=== PATIENT | female | born 1985 | race African-American/Black ===

== ENCOUNTER 2018-05-08 16:52 | Emergency (ER) | payer MEDICAID, OTHER ==
[~2018-05-08] VITALS: Ht 152.4 cm; Wt 68.0 kg
[~2018-05-08 16:52] MED LIST: ATEN-42 PO; HYDR25TA PO
[2018-05-08] MEDS ORDERED: SODIUM CHLORIDE 0.9% 1,000 ML IV ONE (23:02)
[2018-05-08] MEDS ORDERED: ONDANSETRON HCL 4MG/2ML INJ IV STA (23:02)
[2018-05-08] MEDS ORDERED: MORPHINE SULFATE 4 MG/ML CPJ (NOT FOR IM USE) IV STA (23:02)
[2018-05-09] MEDS ORDERED: MORPHINE SULFATE 10 MG/ML CPJ IV NR (00:15)
[2018-05-09 00:26] LABS: HEMOGLOBIN. 9.1 g/dL (12.0-16.0); MEAN CORPUSCULAR HEMOGLOBIN 22.5 pg (28.0-32.0); MEAN CORPUSCULAR VOLUME 73.9 fL (81.0-99.0); MEAN PLATELET VOLUME 8.3 fl (7.4-10.4); PLATELET 290 x1000/uL (130-400); RED BLOOD CELL COUNT 4.06 mill/uL (4.2-5.4); RED CELL DISTRIBUTION WIDTH 20.3 % (11.6-14.6)
[2018-05-09 00:31] LABS: CHLORIDE 102 mEq/L (98-107)
[2018-05-09 00:35] LABS: INR 1.2; PROTHROMBIN TIME 11.8 sec (9.1-11.1)
[2018-05-09 00:52] LABS: CLARITY URINE CLEAR (CLEAR); COLOR URINE YELLOW (YELLOW); KETONES URINE 3+ (NEGATIVE); LEUKOCYTE ESTERASE URINE NEGATIVE (NEGATIVE); NITRITE URINE NEGATIVE (NEGATIVE); OCCULT BLOOD URINE NEGATIVE (NEGATIVE); PH URINE 5.5 (4.5-8.0); PROTEIN URINE 1+ (NEGATIVE); SPECIFIC GRAVITY URINE 1.028 (1.005-1.030); UROBILINOGEN URINE 0.2 E.U./dL (0.2-1.0)
[2018-05-09 00:55] LABS: PLATELET ESTIMATE NORMAL
[2018-05-09 01:23] LABS: *AMPHETAMINES SCREEN URINE NEGATIVE (NEGATIVE); *BARBITURATES SCREEN URINE NEGATIVE (NEGATIVE); *BENZODIAZEPINES SCREEN URINE NEGATIVE (NEGATIVE)
[2018-05-09 01:24] LABS: *COCAINE SCREEN URINE NEGATIVE (NEGATIVE); CANNABINOID URINE SCREEN NEGATIVE (NEGATIVE); METHADONE URINE SCREEN NEGATIVE (NEGATIVE); OPIATES URINE SCREEN NEGATIVE (NEGATIVE); PHENCYCLIDINE URINE SCREEN NEGATIVE (NEGATIVE)
[2018-05-09] MEDS ORDERED: KETOROLAC 30MG/ML VIAL IV ONE (01:45)
[2018-05-09 03:33] VITALS: BP 110/66
== END 2018-05-09 03:55 | disposition home or self-care (01) ==
LOC: ER 16:52
DX: D21.9 Benign neoplasm of connective and other soft tissue, unspecified (principal); R10.9 Unspecified abdominal pain; R11.0 Nausea; Z79.899 Other long term (current) drug therapy
CPT/HCPCS: 36415; 74176; 76856; 80053; 80305; 81003; 81025; 83690; 85025; 85610; 96374; 96375; 99284; J1885; J2270; J2405; J7030

== ENCOUNTER 2020-02-13 17:23 | Emergency (ER) | payer OTHER ==
[~2020-02-13] VITALS: Ht 152.4 cm; Wt 73.0 kg
[2020-02-13 18:51] LABS: BASOPHILS % 0.4 % (0.0-2.0); EOSINOPHILS % 2.5 % (0.0-5.0); HEMOGLOBIN. 9.8 g/dL (12.0-16.0); MEAN CORPUSCULAR HEMOGLOBIN 24.5 pg (28.0-32.0); MEAN CORPUSCULAR VOLUME 77.5 fL (81.0-99.0); MEAN PLATELET VOLUME 8.8 fl (7.4-10.4); MONOCYTES % 6.4 % (2.0-8.0); NEUTROPHILS % 56.7 % (40.0-76.0); PLATELET 301 x1000/uL (130-400); RED CELL DISTRIBUTION WIDTH 17.1 % (11.6-14.6)
[2020-02-13 18:54] LABS: CHLORIDE 108 mEq/L (98-107)
[2020-02-13 19:06] VITALS: BP 122/81
== END 2020-02-13 20:18 | disposition home or self-care (01) ==
LOC: ER 17:23
DX: N92.0 Excessive and frequent menstruation with regular cycle (principal); I50.9 Heart failure, unspecified; Z98.890 Other specified postprocedural states
CPT/HCPCS: 36415; 80048; 81025; 84484; 85025; 86850; 86900; 99283

== ENCOUNTER 2021-10-17 14:37 | Emergency (ER) | payer OTHER ==
[~2021-10-17] VITALS: Ht 167.6 cm; Wt 78.0 kg
[2021-10-17 15:09] LABS: BASOPHILS % 0.2 % (0.0-2.0); EOSINOPHILS % 0.2 % (0.0-5.0); HEMOGLOBIN. 9.9 g/dL (12.0-16.0); LYMPHOCYTES % 14.4 % (20.0-50.0); MEAN CORPUSCULAR HEMOGLOBIN 24.5 pg (28.0-32.0); MEAN CORPUSCULAR VOLUME 76.3 fL (81.0-99.0); MEAN PLATELET VOLUME 8.1 fl (7.4-10.4); MONOCYTES % 8.4 % (2.0-8.0); NEUTROPHILS % 76.8 % (40.0-76.0); PLATELET 242 x1000/uL (130-400); RED BLOOD CELL COUNT 4.07 mill/uL (4.2-5.4); RED CELL DISTRIBUTION WIDTH 25.4 % (11.6-14.6)
[2021-10-17 15:23] LABS: CHLORIDE 104 mEq/L (98-107)
[2021-10-17] MEDS ORDERED: ONDANSETRON HCL 4MG/2ML INJ IV ONE (16:00)
[2021-10-17] MEDS ORDERED: SODIUM CHLORIDE 0.9% 1,000 ML IV ONE (16:00)
[2021-10-17 16:39] LABS: PLATELET ESTIMATE NORMAL
[2021-10-17] MEDS ORDERED: ACETAMINOPHEN 325MG TABLET PO NR (17:30)
[2021-10-17] MEDS ORDERED: ONDANSETRON HCL 4MG/2ML INJ IV NR (17:45)
[2021-10-17 22:30] VITALS: BP 130/85
[2021-10-17] MEDS ORDERED: IBUPROFEN 600MG TABLET PO ONE (22:30)
== END 2021-10-17 22:37 | disposition home or self-care (01) ==
LOC: ER 14:43
DX: R10.84 Generalized abdominal pain (principal); M79.18 Myalgia, other site; Z20.822 Contact with and (suspected) exposure to COVID-19; R19.7 Diarrhea, unspecified; R11.2 Nausea with vomiting, unspecified; R05.8 Other specified cough; I50.9 Heart failure, unspecified; Z95.810 Presence of automatic (implantable) cardiac defibrillator
CPT/HCPCS: 36415; 71045; 74176; 80053; 83690; 84702; 85025; 87426; 96374; 99285; J2405; J7030

== ENCOUNTER 2021-10-31 16:50 | Emergency (ER) | payer OTHER ==
[~2021-10-31] VITALS: Ht 165.1 cm; Wt 78.0 kg
[2021-10-31 20:52] LABS: CLARITY URINE CLOUDY (CLEAR); COLOR URINE YELLOW (YELLOW); KETONES URINE 1+ (NEGATIVE); LEUKOCYTE ESTERASE URINE 2+ (NEGATIVE); NITRITE URINE NEGATIVE (NEGATIVE); OCCULT BLOOD URINE TRACE (NEGATIVE); PROTEIN URINE 1+ (NEGATIVE); SPECIFIC GRAVITY URINE 1.026 (1.005-1.030)
[2021-10-31] MEDS ORDERED: HYDROCODONE/ACETAMINOPHEN 5/325MG TABLET PO STA (21:04)
[2021-10-31 21:06] LABS: BASOPHILS % 0.2 % (0.0-2.0); EOSINOPHILS % 1.4 % (0.0-5.0); HEMATOCRIT. 30.5 % (36.0-48.0); HEMOGLOBIN. 9.7 g/dL (12.0-16.0); LYMPHOCYTES % 10.9 % (20.0-50.0); MEAN CORPUSCULAR HEMOGLOBIN 24.2 pg (28.0-32.0); MEAN CORPUSCULAR VOLUME 76.3 fL (81.0-99.0); MEAN PLATELET VOLUME 7.6 fl (7.4-10.4); MONOCYTES % 6.9 % (2.0-8.0); NEUTROPHILS % 80.6 % (40.0-76.0); PLATELET 412 x1000/uL (130-400); RED BLOOD CELL COUNT 3.99 mill/uL (4.2-5.4); RED CELL DISTRIBUTION WIDTH 23.6 % (11.6-14.6)
[2021-10-31 21:16] LABS: CHLORIDE 103 mEq/L (98-107)
[2021-10-31 21:24] LABS: HCG SCREEN NEGATIVE
[2021-10-31 21:34] LABS: PLATELET ESTIMATE INCREASED
[2021-11-01] MEDS ORDERED: CEPH500C2 MT (00:42)
[2021-11-01] MEDS ORDERED: IBUP-2029 MT (00:42)
[2021-11-01 01:03] VITALS: BP 114/65
== END 2021-11-01 01:04 | disposition home or self-care (01) ==
LOC: ER 16:50
DX: N39.0 Urinary tract infection, site not specified (principal); N83.202 Unspecified ovarian cyst, left side; I50.9 Heart failure, unspecified
CPT/HCPCS: 36415; 74176; 80053; 81003; 81025; 84703; 85025; 99284